=== PATIENT | female | born 1975 | race Caucasian/White ===

== ENCOUNTER 2016-08-20 15:24 | Emergency (ER) | payer MEDICAID ==
[~2016-08-20] VITALS: Ht 165.1 cm; Wt 77.0 kg
[~2016-08-20 15:24] MED LIST: ACET325T40 PO; PANT40TA4 PO
[2016-08-20 15:33] VITALS: Ht 165.1 cm; Wt 77.0 kg
[2016-08-20] MEDS ORDERED: LORAZEPAM 1 MG TAB PO ONE (17:00)
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
[2016-08-20 18:52] VITALS: BP 125/77; PULSE 64; RESP 20
== END 2016-08-20 18:54 | disposition home or self-care (01) ==
LOC: FTE 15:24
DX: R20.2 Paresthesia of skin (principal)
CPT/HCPCS: 93005; Z7610